=== PATIENT | female | born 1975 | race Caucasian/White ===

== ENCOUNTER 2018-05-09 17:28 | Emergency (ER) | payer OTHER ==
[2018-05-09 17:43] VITALS: BP 103/72; PULSE 76; TEMP 97.7; BMI 21.0
--- NOTE | 2018-05-09 18:06 | PDOC ---
History of Present Illness - General Chief Complaint: Pain, Acute Stated Complaint: HAND INJURY Time Seen by Provider: 05/09/18 17:49 History Source: Patient Exam Limitations: No Limitations - History of Present Illness Initial Comments: CHIEF COMPLAINT: 42 y/o afebrile female with no significant PMH c/o left hand pain since fall 11 days ago. HISTORY OF PRESENT ILLNESS: The patient fell on outstretched left hand 11 days ago while playing sports. She admits she didn't have insurance until yesterday so that is why she waited so long to be seen. SHe states she cannot make a fist with her left hand without a lot of pain. She denies numbness/tingling, fever. She has not taken anything for pain. Vital signs on arrival are within normal limits REVIEW OF SYSTEMS: GENERAL/CONSTITUTIONAL: No fever/chills. No weakness. No weight change. MUSCULOSKELETAL: +left hand pain and swelling. No neck or back pain. SKIN: No rash or easy bruising. NEUROLOGIC: No headache, vertigo, loss of consciousness, or loss of sensation. PHYSICAL EXAM: VITAL_SIGNS: within normal limits GENERAL_APPEARANCE: alert, cooperative, no obvious discomfort. MENTAL_STATUS: speech clear, oriented X 3, responds appropriately to questions. NEURO: motor intact and sensory intact in injured extremity. EXTREMITIES: good pulse in injured extremity. Swelling and TTP over the base of the 2nd and 3rd metacarpals of left hand. Decreased drip strength left hand. Full flexion and extension of left wrist. No warmth, streaking. SKIN: warm, dry, good color. Past History - Past Medical History Allergies/Adverse Reactions: Allergies Allergy/AdvReac Type Severity Reaction Status Date / Time No Known Allergies Allergy Verified 05/09/18 17:39 Home Medications: Ambulatory Orders NK [No Known Home Medication] 05/09/18 COPD: No - Suicide/Smoking/Psychosocial Hx Smoking History: Never smoked Hx Alcohol Use: No Drug/Substance Use Hx: No *Physical Exam - Vital Signs Last Vital Signs Temp Pulse Resp BP Pulse Ox 97.7 F 76 16 103/72 99 05/09/18 17:40 05/09/18 17:40 05/09/18 17:40 05/09/18 17:40 05/09/18 17:40 Medical Decision Making - Medical Decision Making A/P: 42 y/o female with left hand pain. Possible old fracture from 11 days ago. Plan is as follows: 1. Xray left hand Xray left hand IMPRESSION: No fracture Gave patient results. Wrapped affected hand with SPARKLE bandage. Suggested RICE instructions and motrin for pain/swelling. provided ortho referral for continued pain. THe patient verbalizes understanding of all instructions, has no further questions and is awaiting discharge. *DC/Admit/Observation/Transfer Diagnosis at time of Disposition: Hand pain, left Hand injury Qualifiers: Encounter type: initial encounter Laterality: left Qualified Code(s): S69.92XA - Unspecified injury of left wrist, hand and finger(s), initial encounter - Discharge Dispostion Disposition: HOME Condition at time of disposition: Good - Referrals Referrals: Yoandy Perea MD [Staff Physician] - Call tomorrow - Patient Instructions Printed Discharge Instructions: DI for Hand Pain, How To Perform RICE (Rest, Ice, Compress, Elevate) Additional Instructions: Discharge Instructions: -The xray of your hand was normal -Use PSARKLE bandage for comfort -Follow RICE instructions to help with swelling and pain -You can take over the counter Motrin OR Ibuprofen for pain -Call Dr. Perea next week to schedule a follow up appointment if symptoms continue. - Post Discharge Activity
== END 2018-05-09 19:37 | disposition home or self-care (01) ==
LOC: JERFT 17:28
DX: S69.82XA Other specified injuries of left wrist, hand and finger(s), initial encounter (principal); W18.39XA Other fall on same level, initial encounter; Y93.79 Activity, other specified sports and athletics; Y92.9 Unspecified place or not applicable; Y99.8 Other external cause status
CPT/HCPCS: 73130-TC-LR-FY; 99281-25